=== PATIENT | female | born 2000 | race Caucasian/White ===

== ENCOUNTER 2018-06-14 22:16 | Emergency (ER) | payer OTHER ==
[2018-06-14 23:09] LABS: #Eosinphils 0.2 thou/uL (0.0-0.7); #Lymphocytes 3.6 thou/uL (1.20-3.40); #Monocytes 0.7 thou/uL (0.11-0.59); #Neutrophils 5.1 thou/uL (1.40-6.50); %Basophils 0.3 % (0.0-1.0); %Eosinophils 1.9 % (0.0-10.0); %Lymphocytes 37.5 % (28.0-48.0); %Monocytes 7.1 % (0.0-4.0); %Neutrophils 53.2 % (31.0-61.0); Mean Corpuscular HGB CONC 31.7 g/dL (32.0-36.0); Mean Corpuscular Hemoglobin 26.4 pg (25.0-35.0); Mean Corpuscular Volume 83.1 fL (78.0-98.0); Platelet Count 315 thou/uL (130-400); RBC Distribution Width 12.5 % (11.5-14.5); Red Blood Cell (RBC) Count 4.18 mill/uL (4.00-5.20); White Blood Cell (WBC) Count 9.6 thou/uL (4.8-10.8)
[2018-06-14 23:26] LABS: ALT (SGPT) 21 U/L (8-55); AST (SGOT) 14 U/L (5-30); Albumin 4.2 g/dL (3.5-5.0); Alkaline Phosphatase 66 U/L (40-150); Anion Gap 12 mmol/L (10-20); BUN (Urea Nitrogen) 9 mg/dL (8.4-21.0); Bilirubin, Total 0.2 mg/dL (0.2-1.2); Calc. Creatinine Clearance 0 mL/min (70-130); Calcium 9.4 mg/dL (7.8-10.44); Carbon Dioxide 27 mmol/L (22-29); Chloride 107 mmol/L (98-107); Estimated GFR-MDRD Greater than 90; Globulin 3.1 g/dL (2.4-3.5); Glucose 128 mg/dL (70-105); Potassium 4.3 mmol/L (3.5-5.1); Protein, Total 7.3 g/dL (6.0-8.3); Sodium 142 mmol/L (136-145)
[2018-06-15] MEDS ORDERED: Mag-Al 1200 mg/1200 mg/30 ML UDCUP ONE (00:29)
[2018-06-15] MEDS ORDERED: Lidocaine Viscous Sol 2% 15 ml UD Cup ONE (00:29)
[2018-06-15] MEDS ORDERED: Ondansetron ODT 8 MG TAB ONE (00:29)
[2018-06-15] MEDS ORDERED: Dicyclomine 20 MG TAB ONE (00:29)
--- NOTE | 2018-06-15 07:37 | ULT ---
PRELIMINARY REPORT/[facility]/EMERGENCY AFTER HOURS PROCEDURE: EXAM: US Abdomen Limited, Right Upper Quadrant EXAM DATE/TIME: 06/15/2018 12:45 AM CLINICAL HISTORY: 17 years old, female; Other: Epigastric pain TECHNIQUE: Imaging protocol: Real-time ultrasound of the abdomen with image documentation. Examination was focused on the right upper quadrant. COMPARISON: No relevant prior studies available. FINDINGS: Liver: Normal. No masses. Gallbladder: Normal. No gallstones. There is no gallbladder wall thickening. Common bile duct: Normal. No stones. No dilation. Pancreas: Visualized pancreas is unremarkable. Right kidney: Normal. No mass. No hydronephrosis. IMPRESSION: No acute findings. Thank you for allowing us to participate in the care of your patient. Dictated and Authenticated by: Efrain Valencia MD 06/15/2018 1:36 AM Central Time ([place] & [place]) FINAL REPORT EMERGENCY AFTER HOURS RIGHT UPPER QUADRANT ULTRASOUND: HISTORY: Epigastric pain. FINDINGS/IMPRESSION: Multiple longitudinal and transverse images of the right upper quadrant of the abdomen is obtained us ing multi hertz curvilinear transducer. Real-time color flow images are used to evaluate the right upper quadrant. I concur with the dictation from [facility]. No evidence of significant right upper quadrant abnormality seen. The gallbladder is unremarkable. Co mmon bile duct is of normal size measuring 3.8 mm. No evidence of ascites seen. No evidence of intrahepatic biliary dilatation seen. Transcribed Date/Time: 06/15/2018 8:08 AM
== END 2018-06-15 02:36 | disposition home or self-care (01) ==
LOC: ERS 22:16
DX: K29.70 Gastritis, unspecified, without bleeding (principal)
CPT/HCPCS: 36415; 76705; 80053; 85025